=== PATIENT | female | born 1940 | race Caucasian/White ===

== ENCOUNTER 2025-01-29 06:35 | Day surgery (SDC) | payer OTHER, SELFPAY ==
[2025-01-29 07:43] LABS: Glucose - Point of Care 113 mg/dl (70-99)
== END 2025-01-29 09:05 | disposition home or self-care (01) ==
LOC: CATH 06:35
PROVIDERS: ATTENDING PHYSICIAN Internal Medicine Cardiovascular Disease; FAMILY PHYSICIAN Internal Medicine; OTHER PHYSICIAN Internal Medicine Interventional Cardiology
DX: I08.3 Combined rheumatic disorders of mitral, aortic and tricuspid valves (principal); I08.8 Other rheumatic multiple valve diseases; I48.0 Paroxysmal atrial fibrillation; D50.9 Iron deficiency anemia, unspecified; I70.0 Atherosclerosis of aorta; Z95.0 Presence of cardiac pacemaker; E66.9 Obesity, unspecified; Z79.02 Long term (current) use of antithrombotics/antiplatelets; Z79.890 Hormone replacement therapy; Z79.899 Other long term (current) drug therapy; Z79.4 Long term (current) use of insulin; N18.30 Chronic kidney disease, stage 3 unspecified
CPT/HCPCS: 93312; 93320; 93325; 82962

== ENCOUNTER 2025-04-14 05:54 | Inpatient (IN) | payer OTHER, SELFPAY ==
[2025-04-02 10:43] VITALS: BMI 35.0
[2025-04-02 11:10] LABS: % Basophils 0.6 % (0-2); % Eosinophils 2.8 % (0-6); % Immature Granulocytes 0.2 % (0-0.5); % Lymphocytes 16.2 % (20.5-51.1); % Monocytes 10.6 % (1.7-9.3); % Neutrophils 69.6 % (42.2-75.2); Absolute Eosinophils 0.2 10^3/uL (0-0.7); Absolute Lymphocytes 0.9 10^3/uL (1.2-3.4); Absolute Monocytes 0.6 10^3/uL (0.1-0.6); Absolute Neutrophils 3.7 10^3/uL (1.4-6.5); Hematocrit 32.7 % (37.0-47.0); Hemoglobin 10.5 g/dL (12.0-16.0); Mean Corp Hgb Conc. 32.1 g/dL (33.0-37.0); Mean Corpuscular Hgb 29.9 pg (27.0-31.0); Mean Corpuscular Volume 93.2 fL (81.0-99.0); Mean Platelet Volume 10.6 fL (7.4-10.4); Nucleated Red Blood Cells % 0 %; Platelet Count 168 10^3/uL (130-400); Red Blood Cell Count 3.51 10^6/uL (4.20-5.40); Red Cell Dist. Width 15.2 % (11.5-14.5); White Blood Cell Count 5.3 10^3/uL (4.8-10.8)
[2025-04-02 11:26] LABS: INR 0.99; PT 13.6 Sec (11.4-14.6)
[2025-04-02 11:35] LABS: ALT (SGPT) 27 U/L (0-35); AST (SGOT) 23 U/L (14-36); Albumin 4.2 g/dl (3.5-5.0); Alkaline Phosphatase 81 U/L (38-126); Blood Urea Nitrogen 30 mg/dl (7-17); Calcium 9.8 mg/dl (8.4-10.2); Carbon Dioxide 28 mmol/L (22-30); Chloride 109 mmol/L (98-107); Estimated Creatinine Clearance 29 ml/min; Glucose 103 mg/dl (70-99); Potassium 4.7 mmol/L (3.5-5.1); Sodium 141 mmol/L (135-145); Total Protein 6.7 g/dl (6.3-8.2)
[2025-04-14] VITALS (21 sets, daily range): BP systolic 107–164; BP diastolic 47–100; BMI 34.6
[2025-04-14 07:04] LABS: Glucose - Point of Care 97 mg/dl (70-99)
[2025-04-14] MEDS: NSS 500 IV (07:10)
[2025-04-14] MEDS: TYLENOL 650 MG PO (09:43)
--- NOTE | 2025-04-14 09:55 | ITS.CL.PN ---
Glove Wrapper - Procedure Note
Procedure
Procedure Note:
Watchman Implantation Report
Date: April 14, 2025
Referring: Dr. TAMELA Arias
History: Gastrointestinal bleeding with markedly elevated [id number] score and prior stent on Brilinta in 2022 he will need antiplatelet therapy until early 2025 for a 30-month course
Watchman implant: Morales
Transseptal tape folding machine operator: Mikki
Procedure report:
After informed consent and patient safety timeout the patient was sedated by the anesthesiology service under general anesthesia. Transesophageal echo was performed see separate report demonstrating a clear left atrial appendage with a 21 to 22 mm
ostium. As such we selected a 27 mm device for initial implant.
Dr. Kaye performed single access 8 [place] using ultrasound guidance in the right femoral vein and 8 [place] short sheath was placed which was eventually upgraded to the true steer watchman sheath over a radiofrequency pigtail wire. The right
femoral vein was dilated in between groin exchange. Under fluoroscopic guidance and LACEY guidance the watchman sheath was brought into the interatrial fossa by Dr. Kaye and in the low anterior position the radiofrequency wire access the left atrium
and the sheath was brought into the left atrium. The pigtail wire was exchanged for a pigtail catheter which engaged the appendage and venography was performed demonstrating a chicken wing 21 mm ostium appendage.
I performed the remainder of the procedure exchanging the pigtail catheter for the 27 mm watchman and with the sheath two thirds distance into the left atrial appendage with reasonable apposition the 27 mm device was delivered to the back wall of
the left atrial appendage leaving an ostial position. Pass criteria demonstrated a 28 to 32% compression, to tug test did not displace the device, no leak or thrombus was noted on the device and an ostial position without significant mitral
shoulder. The team and I reviewed the Pass criteria and the decision was made to deploy the device which was then deployed and she is not catheters removed to the right atrium. The pacemaker leads were in stable position and heparin was given to
maintain ACT greater than 300 seconds for the duration of the procedure. Protamine 35 mg was given post procedure and a [id number] suture was given to the right femoral vein. The patient tolerated the procedure well.
Impression:
27 mm Watchman delivery
Eliquis 2.5 mg twice daily until 3-month LACEY and will continue Brilinta in the background and hopefully at 3 months without device leak, stability, or thrombus we can stop Eliquis and continue Brilinta until early 2025 with a switch to aspirin
monotherapy given the prior stent.
[2025-04-14] MEDS: HIPREX 1 GRAM PO ×2 (10:23→20:13)
[2025-04-14] MEDS: TRANDATE 100 MG PO (10:23)
[2025-04-14] MEDS: LEXAPRO 5 MG PO (10:24)
[2025-04-14] MEDS: ZESTRIL 20 MG PO ×2 (10:24→20:13)
[2025-04-14] MEDS: PROTONIX 40 MG PO (10:24)
[2025-04-14] MEDS: PACERONE 200 MG PO (10:27)
[2025-04-14] MEDS: BRILINTA 90 MG PO ×2 (10:27→20:13)
[2025-04-14] MEDS: ELIQUIS 2.5 MG PO ×2 (10:27→20:13)
[2025-04-14] MEDS: NOVOLOG FLEXPEN-MODERATE RESISTANCE SC ×2 (10:37→12:33)
[2025-04-14 10:46] LABS: Glucose - Point of Care 129 mg/dl (70-99)
[2025-04-14 12:16] LABS: ACT-LR - POC 326 Seconds (116-155)
[2025-04-14] MEDS: NOVOLOG FLEXPEN-MODERATE RESISTANCE 5 UNITS SC (16:48)
[2025-04-14 16:56] LABS: Glucose - Point of Care 269 mg/dl (70-99)
--- NOTE | 2025-04-14 17:31 | PTCARENOTE ---
Rec'd Pt s/p Watchman procedure, A,A+OX3, denies pain. R femoral dsg D+I. VSS.
[2025-04-14 22:30] LABS: Glucose - Point of Care 417 mg/dl (70-99)
[2025-04-14] MEDS: CRESTOR 20 MG PO (22:33)
[2025-04-14] MEDS: KLONOPIN 0.5 MG PO (22:33)
[2025-04-14] MEDS: TRANDATE 200 MG PO (22:33)
[2025-04-14] MEDS: CARDURA 4 MG PO (22:33)
[2025-04-14] MEDS: SODIUM BICARBONATE 650 MG PO (22:33)
[2025-04-14 23:03] LABS: Glucose - Point of Care 412 mg/dl (70-99)
[2025-04-14 23:39] LABS: Blood Urea Nitrogen 45 mg/dl (7-17); Calcium 8.9 mg/dl (8.4-10.2); Carbon Dioxide 21 mmol/L (22-30); Chloride 106 mmol/L (98-107); Estimated Creatinine Clearance 29 ml/min; Glucose 400 mg/dl (70-99); Potassium 5.6 mmol/L (3.5-5.1); Sodium 133 mmol/L (135-145)
[2025-04-15] VITALS (7 sets, daily range): BP systolic 109–145; BP diastolic 42–90; BMI 34.9
[2025-04-15] MEDS: NSS IV (00:17)
[2025-04-15] MEDS: LANTUS 0.1 UNITS SC (00:17)
--- NOTE | 2025-04-15 00:40 | W.PN.UPDATE ---
Update Note
Progress Note Update
-BMP was checked for elevated glucose: BG is 400, K is 5.6, Cr 1.6 (same preop). Gave 1g Ca gluconate, 10 units iv reg insulin, 10 gr po Lokelma. Held Lisinopril. Will follow K and glucose closely.
[2025-04-15 00:50] LABS: Glucose - Point of Care 384 mg/dl (70-99)
[2025-04-15] MEDS: NOVOLIN R 0.1 UNITS IV (00:50)
[2025-04-15] MEDS: CALCIUM GLUCONATE 1000 MG IV (00:55)
[2025-04-15] MEDS: LOKELMA 10 GRAM PO (01:33)
[2025-04-15 02:07] LABS: Glucose - Point of Care 318 mg/dl (70-99)
[2025-04-15 03:07] LABS: Glucose - Point of Care 271 mg/dl (70-99)
[2025-04-15 03:49] LABS: Hematocrit 29.9 % (37.0-47.0); Mean Corp Hgb Conc. 33.4 g/dL (33.0-37.0); Mean Corpuscular Hgb 31.1 pg (27.0-31.0); Mean Corpuscular Volume 92.9 fL (81.0-99.0); Mean Platelet Volume 10.3 fL (7.4-10.4); Platelet Count 151 10^3/uL (130-400); Red Blood Cell Count 3.22 10^6/uL (4.20-5.40); Red Cell Dist. Width 15.3 % (11.5-14.5); White Blood Cell Count 6.8 10^3/uL (4.8-10.8)
[2025-04-15 04:16] LABS: Blood Urea Nitrogen 44 mg/dl (7-17); Calcium 9.5 mg/dl (8.4-10.2); Carbon Dioxide 21 mmol/L (22-30); Chloride 108 mmol/L (98-107); Estimated Creatinine Clearance 29 ml/min; Glucose 256 mg/dl (70-99); Magnesium 2.1 mg/dl (1.6-2.3); Potassium 4.6 mmol/L (3.5-5.1); Sodium 135 mmol/L (135-145)
[2025-04-15 05:37] LABS: Glucose - Point of Care 301 mg/dl (70-99)
--- NOTE | 2025-04-15 06:16 | PTCARENOTE ---
Assumed care of the pt @ 1900. Pt is AAOx3 A paced on the monitor VSS rt groin dressing sm amt strike through blood surrounding skin soft to touch ecchymotic area. Call nuñez within reach.
--- NOTE | 2025-04-15 06:18 | PTCARENOTE ---
2200 BS 417 stat BMP sent 400 glucose and K 5.6. Ivan Kaufman notified and ordered 10 units Insulin IVP CA glu 1 gm IVP Juan po ordered repeat K 4.6. see flowsheet for accu checks.
[2025-04-15] MEDS: SYNTHROID 50 MCG PO (06:25)
[2025-04-15 08:16] LABS: Glucose - Point of Care 255 mg/dl (70-99)
[2025-04-15 08:24] LABS: Glycohemoglobin (HgbA1c) 6.2 % (4.0-5.6)
[2025-04-15] MEDS: TRANDATE 100 MG PO (09:12)
[2025-04-15] MEDS: PROTONIX 40 MG PO (09:12)
[2025-04-15] MEDS: LEXAPRO 5 MG PO (09:12)
[2025-04-15] MEDS: HIPREX 1 GRAM PO (09:12)
[2025-04-15] MEDS: PEPCID 20 MG PO (09:13)
[2025-04-15] MEDS: ELIQUIS 2.5 MG PO (09:13)
[2025-04-15] MEDS: DEMADEX 10 MG PO (09:13)
[2025-04-15] MEDS: PACERONE 200 MG PO (09:14)
[2025-04-15] MEDS: BRILINTA 90 MG PO (09:14)
--- NOTE | 2025-04-15 09:31 | W.PN.CARDCBS ---
Addendum entered and electronically signed by Jeffrey Morales MD 04/15/25 10:04:
Patient seen and examined
No issues overnight
Agree with ZIPPER IRONER note and assessment
Agree with ZIPPER IRONER plan
Exam:
H&T normocephalic atraumatic
JVP 6
Cor regular no murmurs
Lungs clear to auscultation
Abdomen soft nontender nondistended
No extremity edema
Impression:
Paroxysmal atrial fibrillation
CAD/DC post PCI LCX 11/2022 post ISR stent 03/2023
Hyperkalemia
GIB/Anemia/Epistaxes
HTN
HLD
SSS post PPM 2022
LBBB
CKD 3b
IDDM
DDD
hypothyroidism
GERD
Bladder cancer, 1995, status post chemotherapy.
Iron deficiency anemia, status post iron infusions.
Anxiety/Depression
Plan:
post 27mm Watchman device implant 04/14/25
groin stable
tele A paced
blood glucose elevated 416, BMP showed hyperkalemia treated, repeat 4.6
Will initiate OAC Eliquis 2.5mg bid until 3 mo f/u LACEY
continue Brilinta 90 bid, she states cost is very high (med just went generic), I instructed her to speak with Dr. Arias to switch to Plavix if cost become unaffordable, plan is to continue until early 2025
Hbg and Cr stable post procedure
A1c 6.2%, continue current regime of insulin
Afib continue amiodarone and labetalol
Activity restrictions reviewed
f/u Dr. Arias 2 mo
home today
Original Note:
Today's Communication / Plan
-
post Watchman device implant
OAC 2.5mg bid for 3 mo with Brilinta
stable for d/c home
Impression / Plan
-
PCP: Caty Smith MD
CDY: Dr. Arias
Impression:
Paroxysmal atrial fibrillation
CAD/DC post PCI LCX 11/2022 post ISR stent 03/2023
Hyperkalemia
GIB/Anemia/Epistaxes
HTN
HLD
SSS post PPM 2022
LBBB
CKD 3b
IDDM
DDD
hypothyroidism
GERD
Bladder cancer, 1995, status post chemotherapy.
Iron deficiency anemia, status post iron infusions.
Anxiety/Depression
Plan:
post 27mm Watchman device implant 04/14/25
groin stable
tele A paced
blood glucose elevated 416, BMP showed hyperkalemia treated, repeat 4.6
Will initiate OAC Eliquis 2.5mg bid until 3 mo f/u LACEY
continue Brilinta 90 bid, she states cost is very high (med just went generic), I instructed her to speak with Dr. Arias to switch to Plavix if cost become unaffordable, plan is to continue until early 2025
Hbg and Cr stable post procedure
A1c 6.2%, continue current regime of insulin
Afib continue amiodarone and labetalol
Activity restrictions reviewed
f/u Dr. Arias 2 mo
home today
Progress Note - Accountant Budget
Subjective
Date of Service: April 15, 2025
denies cp, sob
Objective
Labs:
04/15/25 03:15
04/15/25 03:15
Labs
Hgb 10.0 g/dL (12.0-16.0) L 04/15/25 03:15
Hct 29.9 % (37.0-47.0) L 04/15/25 03:15
Plt Count 151 10^3/uL (130-400) 04/15/25 03:15
PT 13.6 Sec (11.4-14.6) 04/02/25 10:41
INR 0.99 04/02/25 10:41
Sodium 135 mmol/L (135-145) 04/15/25 03:15
Potassium 4.6 mmol/L (3.5-5.1) 04/15/25 03:15
Potassium 4.6 mmol/L (3.5-5.1) 04/15/25 03:15
BUN 44 mg/dl (7-17) H 04/15/25 03:15
Creatinine 1.6 mg/dL (0.6-1.0) H 04/15/25 03:15
Glucose 256 mg/dl (70-99) H 04/15/25 03:15
Vital Signs and I&O:
Vital Signs
Temp Pulse Resp BP Pulse Ox
97.6 F 62 16 109/90 97
04/15/25 02:52 04/15/25 03:30 04/15/25 02:52 04/15/25 02:54 04/15/25 02:52
Vital Signs
Temp Pulse Resp BP Pulse Ox
97.6 F 62 16 109/90 97
04/15/25 02:52 04/15/25 03:30 04/15/25 02:52 04/15/25 02:54 04/15/25 02:52
Intake & Output
04/13/25 04/14/25 04/15/25 04/16/25
06:59 06:59 06:59 06:59
Intake Total 480 / 480
Balance 480 / 480
Physical Exam
Physical Exam
NAD ,AOX3
S1, S2, RRR, 2/6 ERIN
CTAB, non labored, no wheeze
SNTND bsx4
R fem site c/d/i no HT, small ecchymosis area noted, soft
--- NOTE | 2025-04-15 09:58 | CM ---
Reviewed chart. Met with Mrs. Tubbs to review discharge plans. She states prior to admission she resides alone in a one story home with a basement.. She states she goes through the garage so she has seven steps to get to the main living area.
She states prior to admission she was independent with ambulation and adls. She states she sometimes uses a single point cane. She states she has a rollator and single point cane at home. She states she has a prescription plan and uses [facility]. She states her son and [id number] resides nearby and they check in on her several times a week. Medical work-up in progress. The discharge plan is to return home with family support when medically stable.
[2025-04-15] MEDS: NOVOLOG FLEXPEN-MODERATE RESISTANCE 3 UNITS SC (09:59)
--- NOTE | 2025-04-15 10:23 | PTCARENOTE ---
Pt ambulating in room ,denies pain. R femoral dsg intact and dry with small amt old drainage, some ecchymosis noted around dsg, site is soft. She is ready for discharge, anxious to go home.
--- NOTE | 2025-04-15 11:14 | W.DS.TRANS ---
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
-
Discharge Instructions:
Discharge Diagnosis/Procedures AFib, s/p Watchman device implant
Diet Low Cholesterol,Diabetic, Carb Controlled
Driving Restrictions No driving for 24 hours
Others Tests Your follow up LACEY is scheduled for 07/21/2025 at
[facility]. You will
receive a phone call from the hospital with
instructions.
Your preadmission testing for your LACEY is
scheduled for 07/07/2025 @ 11:20 at [facility]
Instructions:
Stand-Alone Forms: DC Instructions- Cath/EP Lab
Changes to Home Medications: Yes
Discharge Medications:
DC Medications w/original date entered in [email or web address]
amiodarone 200 mg tablet 200 mg PO DAILY 01/29/25
clonazepam 0.5 mg tablet (Klonopin) 0.5 mg PO HS 01/29/25
doxazosin 4 mg tablet 4 mg PO HS 01/29/25
famotidine 40 mg tablet 40 mg PO BID 01/29/25
insulin detemir U-100 100 unit/mL (3 mL) subcutaneous pen 10 unit SC HS 01/29/25
labetalol 100 mg tablet 100 mg PO DAILY 01/29/25
levothyroxine 100 mcg capsule 100 mcg PO RACHEL 01/29/25
levothyroxine 50 mcg tablet 50 mcg PO MOTUWETHFRSA 01/29/25
lisinopril 20 mg tablet 20 mg PO BID 01/29/25
methenamine hippurate 1 gram tablet 1 g PO BID 01/29/25
pantoprazole 40 mg tablet,delayed release 40 mg PO DAILY 01/29/25
ticagrelor 90 mg tablet (Brilinta) 90 mg PO BID 01/29/25
vitamins A,C,L-oevn-eskgis 2,148 mcg-113 mg-45 mg-17.4 mg tablet (PreserVision AREDS) 2 tab PO BID 01/29/25
cholecalciferol (vitamin D3) 50 mcg (2,000 unit) tablet (Vitamin D3) 50 mcg PO DAILY 03/31/25
cranberry extract 500 mg tablet 500 mg PO BID 03/31/25
escitalopram oxalate 5 mg tablet 5 mg PO DAILY 03/31/25
insulin aspart U-100 100 unit/mL (3 mL) subcutaneous pen (Novolog FlexPen U-100 Insulin aspart) 1 sliding scale dose SC AC 03/31/25
labetalol 200 mg tablet 200 mg PO HS 03/31/25
rosuvastatin 20 mg tablet 20 mg PO HS 03/31/25
sodium bicarbonate 650 mg tablet 650 mg PO HS 03/31/25
torsemide 10 mg tablet 10 mg PO MOWEFR 03/31/25
apixaban 2.5 mg tablet (Eliquis) 2.5 mg PO BID #60 tabs 04/15/25
Home Medication Changes
new to eliquis
Pending Results: No
== END 2025-04-15 11:55 | disposition home or self-care (01) | DRG 274 ==
LOC: IVU 05:54
PROVIDERS: Nuclear Medicine Nuclear Cardiology; Nurse Practitioner; Physician Assistant Medical; ADMITTING PHYSICIAN Internal Medicine Cardiovascular Disease; FAMILY PHYSICIAN Internal Medicine
PROC: 02L73DK Occlusion of Left Atrial Appendage with Intraluminal Device, Percutaneous Approach (ICD-10-PCS; 2025-04-14)
PROC: B24BZZ4 Ultrasonography of Heart with Aorta, Transesophageal (ICD-10-PCS; 2025-04-14)
DX: I48.0 Paroxysmal atrial fibrillation (principal); N18.32 Chronic kidney disease, stage 3b; I12.9 Hypertensive chronic kidney disease with stage 1 through stage 4 chronic kidney disease, or unspecified chronic kidney disease; E78.5 Hyperlipidemia, unspecified; I25.10 Atherosclerotic heart disease of native coronary artery without angina pectoris; I44.7 Left bundle-branch block, unspecified; I87.2 Venous insufficiency (chronic) (peripheral); E11.22 Type 2 diabetes mellitus with diabetic chronic kidney disease; E11.65 Type 2 diabetes mellitus with hyperglycemia; K21.9 Gastro-esophageal reflux disease without esophagitis; K64.9 Unspecified hemorrhoids; G89.29 Other chronic pain; M54.50 Low back pain, unspecified; M19.90 Unspecified osteoarthritis, unspecified site; E66.9 Obesity, unspecified; E03.9 Hypothyroidism, unspecified; D50.9 Iron deficiency anemia, unspecified; F41.9 Anxiety disorder, unspecified; F32.A Depression, unspecified; H91.93 Unspecified hearing loss, bilateral; E87.5 Hyperkalemia; Z60.2 Problems related to living alone; I25.2 Old myocardial infarction; Z95.5 Presence of coronary angioplasty implant and graft; Z95.0 Presence of cardiac pacemaker; Z79.4 Long term (current) use of insulin; Z87.440 Personal history of urinary (tract) infections; Z85.51 Personal history of malignant neoplasm of bladder; Z92.21 Personal history of antineoplastic chemotherapy; Z68.35 Body mass index [BMI] 35.0-35.9, adult; Z87.19 Personal history of other diseases of the digestive system; Z79.890 Hormone replacement therapy; Z79.02 Long term (current) use of antithrombotics/antiplatelets; Z85.820 Personal history of malignant melanoma of skin; Z88.1 Allergy status to other antibiotic agents
CPT/HCPCS: 33340; 36415; 80048; 80053; 82962; 83036; 83735; 84132; 85025; 85027; 85347; 85610; 86850; 86900; 86901; 87070; 93005; 93355; C1769; C1892; C1894; Q9967

== ENCOUNTER 2025-07-21 07:41 | Day surgery (SDC) | payer OTHER, SELFPAY ==
[2025-07-07 11:56] VITALS: BMI 33.1
--- NOTE | 2025-07-07 12:26 | HPS.HSE ---
Family Physician
-
Family Physician: Caty Smith
Chief Complaint
-
Paroxysmal atrial fibrillation.
History of Present Illness
The patient is an 84-year-old female presenting today for paroxysmal atrial fibrillation. The patient reports that she is relatively asymptomatic despite this diagnosis. She is currently on pharmacological therapy with Amiodarone and
Labetalol. She has a history of frequent epistaxis and recurrent GI bleeding with underlying anemia while on oral anticoagulation. She has undergone several iron infusions previously, with the last reportedly occurring in May 2025. Her [id number]
is 6 in the setting of age, female gender, hypertension, vascular disease, and diabetes. Her overall HAS-BLED score is 2. Given her elevated risk for thromboembolic events in addition to bleeding events while on lifelong oral anticoagulation, she
proceeded with a Watchman implant on 04/14/2025. She did not experience any post-operative complications. She was initially re-started on Eliquis and advised to continue this twice a day until her post-Watchman transesophageal echocardiogram.
Eliquis was stopped, however, in mid-May 2025 by her routine community services manager, Dr. Figueroa Arias, due to black stools. She has had no further black stools since stopping this medication. She does remain on Brilinta twice a day due to her
history of obstructive coronary artery disease requiring stents in 2022. Given she is 3 months post-Watchman, she will now proceed with a transesophageal echocardiogram to assess the stability of her device. She denies any current complaints today
such as chest pain, shortness of breath, nausea, vomiting, diarrhea, lightheadedness, dizziness, cough, sore throat, or fever.
Medical History
Past Medical History
Past Medical History: Reports Other
Additional Past Medical History:
1. Paroxysmal atrial fibrillation, status post Watchman implant 04/2025; pharmacological therapy with Amiodarone and Labetalol.
2. Hypertension.
3. Dyslipidemia.
4. Coronary artery disease/NSTEMI, 2022, status post PCI with drug-eluting stent to ostial circumflex and subsequent drug-eluting stent for restenosis.
5. Sick sinus syndrome, status post Medtronic dual-chamber pacemaker implant 2022.
6. Left bundle branch block.
7. Chronic venous insufficiency.
8. Mild to moderate valvular disease.
9. Chronic kidney disease stage 3B.
10. Insulin-dependent diabetes.
11. GERD.
12. Recurrent GI bleed and epistaxis secondary to previous Eliquis.
13. Hemorrhoids.
14. Chronic low back pain.
15. Degenerative joint disease.
14. Ambulatory dysfunction with history of falls.
16. Hypothyroidism.
17. History of recurrent UTIs.
18. Bladder cancer, 1995, status post chemotherapy.
19. Skin cancer, including melanoma, status post multiple excisions.
20. Iron deficiency anemia, status post iron infusions.
21. Anxiety.
22. Depression.
23. Hearing impairment bilaterally.
24. Obesity, BMI 33.1.
Past Surgical History: Reports Other
Additional Past Surgical History:
1. Watchman implant.
2. PCI with drug-eluting stent to ostial circumflex.
3. PCI with drug-eluting stent for restenosis.
4. Medtronic Dual-chamber pacemaker implant.
5. Transesophageal echocardiogram.
6. Cholecystectomy.
7. Uterine prolapse surgery.
8. Multiple skin cancer excisions.
9. Dental extractions.
10. Multiple colonoscopies.
11. Endoscopy.
Social History
Tobacco: Non-smoker
Alcohol: None
Living: Alone (The patient lives in a two-story home independently. She does report various family members who do live close by and check in on her frequently. )
Family History
Family History: Not pertinent
Allergies / Home Medications
Allergy/Medication List:
HOME MEDICATIONS:
1. Amiodarone 200 mg p.o. daily.
2. Cholecalciferol 50 mcg p.o. daily.
3. Klonopin 0.5 mg p.o. at bedtime.
4. Cranberry extract 500 mg p.o. twice a day.
5. Doxazosin 4 mg p.o. at bedtime.
6. Escitalopram oxalate 5 mg p.o. daily.
7. Famotidine 40 mg p.o. twice a day.
8. NovoLog sliding scale before meals.
9. Levemir 10-12 units subcutaneous at bedtime.
10. Labetalol 100 mg p.o. daily.
11. Labetalol 200 mg p.o. at bedtime.
12. Levothyroxine 50 mcg PO Mondays, Tuesdays, Wednesdays, , Fridays, and Saturdays.
13. Levothyroxine 100 mcg p.o. on Sundays.
14. Lisinopril 20 mg p.o. twice a day.
15. Methamphetamine hippurate 1 g p.o. twice a day.
16. Pantoprazole 40 mg p.o. daily.
17. Rosuvastatin 20 mg p.o. at bedtime.
18. Sodium bicarbonate 650 mg p.o. at bedtime.
19. Brilinta 90 mg p.o. twice a day.
20. Torsemide 20 mg p.o. Mondays, Wednesdays, and Fridays.
21. PreserVision AREDS 1 tablet p.o. twice a day.
ALLERGIES: Ciprofloxacin.
Review of Systems
-
A 12 point ROS was completed and negative except as noted: Yes
Physical Exam
Vital Signs
Blood pressure 136/53. Heart rate 81. Respirations 18. Pulse ox 98% on room air.
Height 5 feet, 3 inches. Weight 84.7 kg. BMI 33.1.
Physical Exam
General: Well Developed, Well Nourished and No Apparent Distress
HEENT: NormoCephalic, Moist mucous membranes, Atraumatic and PERRLA
Respiratory: Clear
Cardiac: Regular Rhythm and Other (Pacemaker site intact. )
GI: Soft, Non Tender, Non Distended and Other (Obese. )
Musculoskeletal: No Edema and Other (The patient ambulates with a single point cane. )
Skin: Warm and Dry
Neuro: AO x 3 and Nonfocal/grossly intact
Laboratory Results
-
EKG 07/07/2025: Atrial-paced rhythm with prolonged AV conduction. Left axis deviation. Left bundle branch block.
Transesophageal echocardiogram 07/07/2025: Initial images showed no spontaneous contrast. No left atrial appendage thrombus. Watchman FLX pro 27 mm device was well seated and anchored well on tug test. The size of the device post deployment is:
45:18.3 mm 90: 19.4 mm. The compression was appropriate for device size. There was no flow around the device by color flow doppler. Normal left ventricular size mild concentric left ventricular hypertrophy. Preserved LV function with ejection
fraction 55 to 60%. Pacer wire noted in the right heart. Mild to moderate central mitral regurgitation. Mild to moderate aortic regurgitation. Mild tricuspid regurgitation. Compared to previous echo, patient is status post watchman implantation.
Impression/Plan
-
IMPRESSION/PLAN:
1. Paroxysmal atrial fibrillation: The patient is 3 months post-Watchman and will require a transesophageal echocardiogram to assess the overall stability of her device. Her LACEY has been scheduled for 07/21/[address] Yrn Mendoza. The
benefits and risks of the procedure have been explained to the patient. The patient understands these risks and wishes to proceed.
[2025-07-21 08:35] LABS: Glucose - Point of Care 94 mg/dl (70-99)
== END 2025-07-21 11:00 | disposition home or self-care (01) ==
LOC: CATH 07:41
PROVIDERS: ATTENDING PHYSICIAN Internal Medicine Cardiovascular Disease; FAMILY PHYSICIAN Internal Medicine; OTHER PHYSICIAN Internal Medicine Interventional Cardiology
DX: Z45.9 Encounter for adjustment and management of unspecified implanted device (principal); Z95.818 Presence of other cardiac implants and grafts; I48.0 Paroxysmal atrial fibrillation; E03.9 Hypothyroidism, unspecified; E11.22 Type 2 diabetes mellitus with diabetic chronic kidney disease; E66.9 Obesity, unspecified; E78.5 Hyperlipidemia, unspecified; F32.A Depression, unspecified; I08.3 Combined rheumatic disorders of mitral, aortic and tricuspid valves; I70.0 Atherosclerosis of aorta; N18.32 Chronic kidney disease, stage 3b; I12.9 Hypertensive chronic kidney disease with stage 1 through stage 4 chronic kidney disease, or unspecified chronic kidney disease; I87.2 Venous insufficiency (chronic) (peripheral); I25.10 Atherosclerotic heart disease of native coronary artery without angina pectoris; Z95.5 Presence of coronary angioplasty implant and graft; I25.2 Old myocardial infarction; Z87.19 Personal history of other diseases of the digestive system; G89.29 Other chronic pain; M19.90 Unspecified osteoarthritis, unspecified site; Z87.440 Personal history of urinary (tract) infections; Z92.21 Personal history of antineoplastic chemotherapy; Z85.51 Personal history of malignant neoplasm of bladder; D50.9 Iron deficiency anemia, unspecified; H91.93 Unspecified hearing loss, bilateral; F41.9 Anxiety disorder, unspecified; Z85.820 Personal history of malignant melanoma of skin; I44.7 Left bundle-branch block, unspecified; I49.5 Sick sinus syndrome; Z91.81 History of falling
CPT/HCPCS: 93312; 93320; 93325; 82962; 93005